=== PATIENT | female | born 1965 | race African-American/Black ===

== ENCOUNTER 2017-05-30 07:29 | Emergency (ER) | payer BC ==
[~2017-05-30] VITALS: Ht 162.6 cm; Wt 94.0 kg
[~2017-05-30 07:29] MED LIST: AMITRIPTYLINE H10 MG PO; ANTIVERT25 MG PO; BUTALB-APAP-CA1 EACH PO; METOPROLOL SUCC50 MG PO; NO HOME MEDS; OXYBUTYNIN CHLO10 MG PO
[2017-05-30 07:39] VITALS: BP 166/96
[2017-05-30] MEDS ORDERED: FLEXERIL10 MG PO (09:52)
== END 2017-05-30 10:11 | disposition home or self-care (01) ==
LOC: EME 07:29
DX: M54.2 Cervicalgia (principal); M62.830 Muscle spasm of back; I10 Essential (primary) hypertension
CPT/HCPCS: 72040; 99281; 99283

== ENCOUNTER 2018-02-21 21:36 | Observation (INO) | payer BC ==
[~2018-02-21] VITALS: Ht 154.9 cm; Wt 94.5 kg
[~2018-02-21 21:36] MED LIST changes: +FLEXERIL10 MG PO
[2018-02-21 22:06] LABS: HEMATOCRIT 39.1 % (36.0-46.0); HEMOGLOBIN 13.4 G/DL (11.9-15.5); MCHC 34.3 G/DL (30.0-36.0); MCV 90.5 FL (83-99); PLATELET COUNT 296 K/uL (156-360); RBC DIS.WIDTH-SD 40.1 % (39-53); RED BLOOD COUNT 4.32 M/uL (3.80-5.20); WHITE BLOOD COUNT 12.2 K/uL (4.1-10.2)
[2018-02-21 22:14] LABS: CHLORIDE 106 mEq/L (99-109); SODIUM 141 mEq/L (136-147)
[2018-02-21 22:15] LABS: GLUCOSE 107 mg/dL (70-99)
[2018-02-21 22:19] LABS: CREATININE 0.9 mg/dL (0.6-1.3); GFR ESTIMATE (CALCULATED) > 59 mL/min/
[2018-02-21 22:20] LABS: UREA NITROGEN (BUN) 11 mg/dL (9-23)
[2018-02-21 22:26] LABS: TROP-I INTERPRETATION NEGATIVE; TROPONIN-I < 0.01 ng/mL (0.0-0.30)
[2018-02-21 23:19] LABS: D-DIMER ELISA < 150.00 ng/mLDDU (<230)
[2018-02-22 04:29] VITALS: BP 126/81
[2018-02-22 05:44] LABS: TROP-I INTERPRETATION NEGATIVE; TROPONIN-I < 0.01 ng/mL (0.0-0.30)
[2018-02-22] MEDS ORDERED: PRAVASTATIN SOD20 MG PO (06:52)
[2018-02-22] MEDS ORDERED: PROAIR HFA8.5 GM IH (07:03)
[2018-02-22] MEDS ORDERED: VERAPAMIL HCL240 MG PO (07:04)
[2018-02-22 08:29] VITALS: BP 133/80
[2018-02-22] MEDS ORDERED: MECLIZINE HCL25 MG PO (09:38)
[2018-02-22] MEDS ORDERED: CYANOCOBAL1000 MCG/2 IM (09:41)
[2018-02-22] MEDS ORDERED: ADULT ASPIRIN81 MG PO (09:43)
[2018-02-22] MEDS ORDERED: VITAMIN D33000 UNIT PO (09:44)
[2018-02-22 10:47] LABS: TROP-I INTERPRETATION NEGATIVE; TROPONIN-I < 0.01 ng/mL (0.0-0.30)
[2018-02-22 11:13] VITALS: BP 129/79
[2018-02-22] MEDS ORDERED: ASPIR-LOW81 MG PO (14:53)
[2018-02-22 16:08] VITALS: BP 118/61
== END 2018-02-22 18:45 | disposition home or self-care (01) ==
LOC: EME 21:36 → ENPENDDIS 02-22 → EDOF 02-22 02:58 → CANRESERV 02-22 03:00 → ENRESERV 02-22 03:00 → 4SOUTH 02-22 04:06
PROVIDERS: Emergency Medicine; Physician Assistant
DX: R07.9 Chest pain, unspecified (principal); D72.829 Elevated white blood cell count, unspecified; R06.09 Other forms of dyspnea; R05 Cough; R00.0 Tachycardia, unspecified; I10 Essential (primary) hypertension; E78.5 Hyperlipidemia, unspecified; D64.9 Anemia, unspecified; Z90.49 Acquired absence of other specified parts of digestive tract; Z79.82 Long term (current) use of aspirin; Z88.5 Allergy status to narcotic agent; Z82.49 Family history of ischemic heart disease and other diseases of the circulatory system; Z81.1 Family history of alcohol abuse and dependence; Z80.8 Family history of malignant neoplasm of other organs or systems
CPT/HCPCS: 71046; 71275; 80048; 81003; 84484; 85027; 85379; 93005; 99202; 99281; 99285; G0378; J1644; J7030